=== PATIENT | male | born 1955 | race Two or more races ===

== ENCOUNTER 2024-03-18 05:04 | Inpatient (IN) | payer MEDICARE, OTHER ==
[2024-03-18] VITALS (7 sets, daily range): BP systolic 143–152; BP diastolic 82–89; PULSE 63–114; RESP 16–20; TEMP 97.6–97.8; O2SAT 94–98
[~2024-03-18] VITALS: Ht 180.3 cm; Wt 87.7 kg
[2024-03-18 06:36] LABS: Basophils # (auto) 0.1 10 ^3/uL (0-0.2); Basophils % (auto) 1.1 % (0.0-2.0); Eosinophils # (auto) 0.5 10 ^3/uL (0-0.8); Eosinophils % (auto) 5.1 % (0.0-7.0); Hematocrit 41.3 % (41.0-53.0); Hemoglobin 14.6 g/dL (13.5-17.5); Lymphocytes # (auto) 1.9 10 ^3/uL (0.4-5.4); Lymphocytes % (auto) 20.5 % (10.0-50.0); Mean Corpuscular Hemoglobin 33.4 pg (28.0-32.0); Mean Corpuscular Hgb Conc. 35.3 g/dL (32.0-36.0); Mean Corpuscular Volume 94.7 fL (80.0-100.0); Monocytes # (auto) 0.8 10 ^3/uL (0-1.3); Monocytes % (auto) 8.4 % (0.0-12.0); Neutrophils % (auto) 64.9 % (37.0-80.0); Nucleated Red Blood Cells % 0.1 %; Platelet Count (auto) 257 10^3/uL (140-450); Red Blood Cells 4.36 10^6/uL (4.5-5.90); Red Cell Distribution Width 13.1 % (11.8-14.3); White Blood Cell 9.3 10^3/uL (4.4-10.8)
[2024-03-18 06:41] LABS: Alanine Aminotransferase 20 U/L (7-40); Albumin 4.5 g/dL (3.2-4.8); Alkaline Phosphatase 115 U/L (46-116); Anion Gap 7 (5-15); Aspartate Aminotransferase 16 U/L (13-40); BUN/Creatinine Ratio 12.2 (10.0-20.0); Bilirubin, Total 0.3 mg/dL (0.2-1.0); Blood Urea Nitrogen 12 mg/dL (9-23); Calcium 9.7 mg/dL (8.7-10.4); Carbon Dioxide 27 mmol/L (20-31); Chloride 105 mmol/L (98-107); Glucose 244 mg/dL (74-106); Potassium 3.7 mmol/L (3.5-5.1); Sodium 139 mmol/L (136-145); Total Protein 7.5 g/dL (5.7-8.2)
[2024-03-18] MEDS ORDERED: DOCUSATE SOD 100 MG CAP PO PRN (10:45)
[2024-03-18] MEDS ORDERED: ALBUTEROL SULF 2.5 MG/0.5ML(0.5%) NEB SOLN NEB PRN (10:45)
[2024-03-18] MEDS ORDERED: IPRATROPIUM BROM 0.5 MG/2.5ML INH SOL NEB PRN (10:45)
[2024-03-18] MEDS ORDERED: DEXTROSE (50%) 50ML SYRG IV PRN (10:45)
[2024-03-18] MEDS ORDERED: ONDANSETRON HCL 4 MG/2 ML VIAL IV PRN (10:45)
[2024-03-18] MEDS ORDERED: NITROGLYCERIN 0.4 MG SL TAB SL PRN (10:45)
[2024-03-18] MEDS ORDERED: MORPHINE SULFATE INJ 2 MG/ml SYRG IV PRN (10:45)
[2024-03-18] MEDS: SODIUM CHLORIDE 0.9% 1,000 ML IV SCH (11:06)
[2024-03-18] MEDS: predniSONE 20 MG TAB PO ONE (11:06)
[2024-03-18] MEDS: IPRATROPIUM BROM 0.5 MG/2.5ML INH SOL NEB ONE (11:08)
[2024-03-18] MEDS: ALBUTEROL SULF 2.5 MG/0.5ML(0.5%) NEB SOLN NEB ONE (11:08)
[2024-03-18] MEDS: ACCU-CHEK COMFORT CURVE STRIP VI SCH (11:30)
[2024-03-18] MEDS: InsuLIN REG 1unit/0.01ml Soln (100units/ml) SC SCH ×2 (12:06→22:00)
[2024-03-18 14:01] LABS: COVID19 ANTIGEN SOFIA FIA NEGATIVE (NEGATIVE); Rapid Influenza A Negative (Negative); Rapid Influenza B Negative (Negative)
[2024-03-18] MEDS: hydrALAZINE HCL 20 MG/ML VL IV ONE (22:06)
[2024-03-18] MEDS: ENOXAPARIN SOD 100 MG/1 ML SYRINGE SC SCH (22:26)
[2024-03-18] MEDS ORDERED: INSLANTI SC (22:42)
[2024-03-18] MEDS ORDERED: METF-370 PO (22:42)
[2024-03-18] MEDS ORDERED: MELA3TAB27 PO (22:42)
[2024-03-18] MEDS ORDERED: LISI20TA56 PO (22:46)
[2024-03-18] MEDS: FLUTICASONE PROP NASAL SPR 0.05 % (50MCG) 16GM EACHNOSTRI SCH (22:56)
[2024-03-18] MEDS ORDERED: LOSA-533 PO (23:03)
[2024-03-19] VITALS (9 sets, daily range): BP systolic 121–163; BP diastolic 72–94; PULSE 71–103; RESP 16–21; TEMP 96.4–97.9; O2SAT 94–98
[2024-03-19] MEDS: dilTIAZem 25 MG/5 ML VIAL IV ONE (00:15)
[2024-03-19] MEDS: MELATONIN 5 MG TAB PO ONE (00:22)
[2024-03-19 07:03] LABS: Basophils # (auto) 0.1 10 ^3/uL (0-0.2); Basophils % (auto) 0.6 % (0.0-2.0); Eosinophils # (auto) 0 10 ^3/uL (0-0.8); Eosinophils % (auto) 0.2 % (0.0-7.0); Hematocrit 46.9 % (41.0-53.0); Hemoglobin 16.3 g/dL (13.5-17.5); Lymphocytes # (auto) 2.4 10 ^3/uL (0.4-5.4); Lymphocytes % (auto) 16.8 % (10.0-50.0); Mean Corpuscular Hemoglobin 32.8 pg (28.0-32.0); Mean Corpuscular Hgb Conc. 34.7 g/dL (32.0-36.0); Mean Corpuscular Volume 94.5 fL (80.0-100.0); Monocytes # (auto) 1.3 10 ^3/uL (0-1.3); Monocytes % (auto) 9.1 % (0.0-12.0); Neutrophils # (auto) 10.4 10 ^3/uL (1.6-8.6); Neutrophils % (auto) 73.3 % (37.0-80.0); Nucleated Red Blood Cells % 0.2 %; Platelet Count (auto) 292 10^3/uL (140-450); Red Blood Cells 4.96 10^6/uL (4.5-5.90); Red Cell Distribution Width 13.4 % (11.8-14.3); White Blood Cell 14.1 10^3/uL (4.4-10.8)
[2024-03-19 07:13] LABS: Alanine Aminotransferase 19 U/L (7-40); Albumin 4.8 g/dL (3.2-4.8); Alkaline Phosphatase 91 U/L (46-116); Anion Gap 9 (5-15); Aspartate Aminotransferase 18 U/L (13-40); BUN/Creatinine Ratio 17.2 (10.0-20.0); Bilirubin, Total 0.8 mg/dL (0.2-1.0); Blood Urea Nitrogen 15 mg/dL (9-23); Calcium 10.3 mg/dL (8.7-10.4); Carbon Dioxide 25 mmol/L (20-31); Chloride 105 mmol/L (98-107); Glucose 160 mg/dL (74-106); Potassium 3.9 mmol/L (3.5-5.1); Sodium 139 mmol/L (136-145); Total Protein 7.9 g/dL (5.7-8.2)
[2024-03-19] MEDS: predniSONE 20 MG TAB PO SCH (09:15)
[2024-03-19] MEDS ORDERED: DEXTROSE (50%) 50ML SYRG IV PRN (15:15)
[2024-03-19] MEDS: LOSARTAN POTASSIUM 50 MG TAB PO ONE (16:47)
[2024-03-19] MEDS: FUROSEMIDE 20 MG/2 ML VIAL IV ONE (16:47)
[2024-03-19] MEDS: ACCU-CHEK COMFORT CURVE STRIP VI SCH (16:48)
[2024-03-19] MEDS: InsuLIN REG 1unit/0.01ml Soln (100units/ml) SC SCH (16:48)
[2024-03-19 20:07] LABS: Urine Bacteria None Seen /hpf (None Seen)
[2024-03-19 20:20] LABS: Urine Blood Negative /uL (Negative); Urine Clarity Clear (Clear); Urine Color Colorless (Yellow); Urine Protein, UAD Negative (Negative); Urine Specific Gravity 1.012 (1.001-1.035); Urine Urobilinogen Normal (Negative); Urine WBC <1 /hpf (0 - 3); Urine pH 5.5 (5.0-9.0)
[2024-03-20] VITALS (7 sets, daily range): BP systolic 99–145; BP diastolic 55–82; PULSE 59–85; RESP 16–18; TEMP 97.3–98.2; O2SAT 95–98
[2024-03-20] MEDS: LOSARTAN POTASSIUM 50 MG TAB PO SCH (09:39)
[2024-03-20] MEDS: FUROSEMIDE 20 MG/2 ML VIAL IV SCH (09:40)
[2024-03-20] MEDS ORDERED: TRIA37.587 PO (15:49)
== END 2024-03-20 18:30 | disposition home or self-care (01) | DRG 291 ==
LOC: ER 05:04 → OVERFLOW 10:39 → WEST WING 22:08
PROVIDERS: ADMIT Nurse Practitioner Family; ATTEND Internal Medicine
DX: I11.0 Hypertensive heart disease with heart failure (principal); I50.41 Acute combined systolic (congestive) and diastolic (congestive) heart failure; Z20.822 Contact with and (suspected) exposure to COVID-19; E11.9 Type 2 diabetes mellitus without complications; Z79.899 Other long term (current) drug therapy; J44.9 Chronic obstructive pulmonary disease, unspecified
CPT/HCPCS: 36415; 71045; 80053; 81001; 82962; 83036; 83880; 84484; 85025; 85379; 87426; 87804; 93005; 93306; 94640; 96374; 99291; G0378; J1815